=== PATIENT | male | born 1990 | race Caucasian/White ===

== ENCOUNTER 2017-04-21 23:09 | Emergency (ER) | payer OTHER ==
[2017-04-22 01:08] VITALS: BP 117/65
== END 2017-04-22 00:55 | disposition home or self-care (01) ==
LOC: ED 23:09
DX: S90.121A Contusion of right lesser toe(s) without damage to nail, initial encounter (principal); Z79.891 Long term (current) use of opiate analgesic; W22.8XXA Striking against or struck by other objects, initial encounter; Y93.02 Activity, running; Y92.89 Other specified places as the place of occurrence of the external cause; Y99.8 Other external cause status

== ENCOUNTER 2017-09-08 19:17 | Emergency (ER) | payer OTHER ==
[~2017-09-08] VITALS: Ht 172.7 cm; Wt 72.1 kg
[2017-09-08 19:39] VITALS: Ht 172.7 cm; Wt 72.1 kg
[2017-09-08 21:40] VITALS: BP 135/83
== END 2017-09-08 21:40 | disposition home or self-care (01) ==
LOC: ED 19:17
DX: G89.29 Other chronic pain (principal); M54.16 Radiculopathy, lumbar region; M51.26 Other intervertebral disc displacement, lumbar region; F12.10 Cannabis abuse, uncomplicated
CPT/HCPCS: J1885